=== PATIENT | male | born 1960 | race Caucasian/White ===

== ENCOUNTER → 2016-05-17 | Outpatient (CLI) | payer OTHER ==
--- NOTE | 2016-05-17 15:18 | DX ---
PA and Lateral Chest X-ray 1140 hours History: Chronic chest pain with shortness of breath. Findings: Heart size and pulmonary vasculature are normal. The lungs are clear without infiltrates or effusions. There is no pneumothorax. The osseous structures are intact. Impression: Normal chest x-ray.
== END ==
LOC: CIMAGING 11:18
PROVIDERS: ATTEND Family Medicine
DX: R07.89 Other chest pain (principal); R06.02 Shortness of breath
CPT/HCPCS: 71020-PO